=== PATIENT | male | born 1970 | race Caucasian/White ===

== ENCOUNTER 2017-07-25 13:16 | Emergency (ER) | payer OTHER ==
--- NOTE | 2017-07-25 13:27 | PDOC ---
History of Present Illness - General Chief Complaint: Injury Stated Complaint: LEFT ANKLE INJURY Time Seen by Provider: 07/25/17 13:17 History Source: Patient Exam Limitations: No Limitations - History of Present Illness Initial Comments: 07/25/17 13:25 47 year old male, appears younger than stated age, no pmh p/w twisting left ankle. Walked on uneven ground and twisted left ankle. Denies numbness, weakness. Reports left lateral malleolus pain and swelling. Brought in by EMS. Past History - Past Medical History Allergies/Adverse Reactions: Allergies Allergy/AdvReac Type Severity Reaction Status Date / Time Penicillins Allergy Unknown Verified 07/25/17 13:26 Sulfa (Sulfonamide Allergy Unknown Verified 07/25/17 13:26 Antibiotics) Home Medications: Ambulatory Orders Atorvastatin Calcium 10 mg PO HS 07/25/17 Naproxen 500 mg PO BID PRN #20 tablet 07/25/17 Review of Systems - Review of Systems Able to Perform ROS?: Yes Comments:: 07/25/17 13:25 GENERAL/CONSTITUTIONAL: No fever, weakness. HEAD, EYES, EARS, NOSE AND THROAT: No change in vision. No ear pain or discharge. No sore throat. CARDIOVASCULAR: No chest pain or shortness of breath. RESPIRATORY: No cough, wheezing, or hemoptysis. GASTROINTESTINAL: No abdominal pain, nausea, vomiting, diarrhea, or decreased PO intolerance. GENITOURINARY: No dysuria, frequency, or change in urination. MUSCULOSKELETAL: No neck or back pain. + left ankle pain and swelling SKIN: No rash NEUROLOGIC: No headache, vertigo, loss of consciousness, or change in strength/ sensation. ENDOCRINE: No increased thirst. No abnormal weight change. HEMATOLOGIC/LYMPHATIC: No anemia, easy bleeding, or history of blood clots. ALLERGIC/IMMUNOLOGIC: No hives or skin allergy. *Physical Exam - Physical Exam Comments: 07/25/17 13:26 GENERAL: Awake, alert, and fully oriented, in no acute distress. HEAD: No signs of trauma EYES: PERRLA, EOMI, sclera anicteric, conjunctiva clear ENT: Auricles normal inspection, hearing grossly normal, nares patent NECK: Normal ROM, supple EXTREMITIES: LLE: 2+ DP pulse. Sensation intact throughout. Able to move all toes. Swelling and tenderness elicited on left lateral malleolus. Palpation of mid and proximal tibia and fibula elicits NO pain. NEUROLOGICAL: Cranial nerves II through XII grossly intact. SKIN: Warm, Dry, normal turgor, no rashes or lesions noted. ED Treatment Course - RADIOLOGY Radiology Studies Ordered: Category Date Time Status ANKLE & FOOT-LEFT* [RAD] Stat Radiology 07/25/17 13:24 Ordered LEG TIB/FIB-LEFT [RAD] Stat Radiology 07/25/17 13:24 Ordered Medical Decision Making - Medical Decision Making 07/25/17 13:26 R/o left ankle fracture. Radiograph and reassess. 07/25/17 15:40 No fractures noted. Will treat as high degree sprain. Pt wishes not to have a splint as it would be cumbersome. Pt placed in a removable aircast. Pt is quite reliable and has follow up with orthopedists at [facility]. Pt will use crutches. Nonweighting NSAIDS Ice elevation I discussed the physical exam findings, ancillary test results and final diagnoses with the patient. I answered all of the patient's questions. The patient was satisfied with the care received and felt comfortable with the discharge plan and treatment plan. The patient will call their primary care physician within 24 hours to arrange follow-up and will return to the Emergency Department with any new, persistant or worsening symptoms. *DC/Admit/Observation/Transfer Diagnosis at time of Disposition: Ankle pain Qualifiers: Chronicity: acute Laterality: left Qualified Code(s): M25.572 - Pain in left ankle and joints of left foot - Discharge Dispostion Disposition: HOME Condition at time of disposition: Stable Decision to Admit order: No - Prescriptions Prescriptions: Naproxen 500 mg PO BID PRN #20 tablet PRN Reason: Pain - Referrals - Patient Instructions Printed Discharge Instructions: DI for Ankle Pain Additional Instructions: Your ankle radiograph shows no obvious fractures. However, I suspect you may have a high degree ankle sprain. Please use the crutches. Ice as needed. Elevate the leg as much as you can. Use the splint for comfort. Please follow up with the orthopedists at [facility]. - Post Discharge Activity
[2017-07-25 13:36] VITALS: BP 113/53; PULSE 61; TEMP 98.6; BMI 24.3
[2017-07-25] MEDS ORDERED: NAPROXEN 500 MG TABLET (FP) PO ONE (15:43)
[2017-07-25] MEDS ORDERED: NAPROXEN 500 MG TABLET (FP) ONE (15:47)
== END 2017-07-25 15:54 | disposition home or self-care (01) ==
LOC: FER 13:16
PROC: 2W3RX1Z Immobilization of Left Lower Leg using Splint (ICD-10-PCS; principal; 2017-07-25)
DX: M25.572 Pain in left ankle and joints of left foot (principal); X58.XXXA Exposure to other specified factors, initial encounter; Y93.89 Activity, other specified; Y92.9 Unspecified place or not applicable
CPT/HCPCS: 73590-TC-LT-FY; 73610-TC-LT-FY; 73630-TC-LT; 99282-25